=== PATIENT | female | born 1965 | race Caucasian/White ===

== ENCOUNTER 2023-04-29 11:13 | Emergency (ER) | payer BC, OTHER ==
[~2023-04-29] VITALS: Ht 160 cm; Wt 78.0 kg
[~2023-04-29 11:13] MED LIST: ALBU90OI INH; AZIT250 PO; DOXY100 PO; ESOM20 PO; ESTR2 PO; FEXPSEER PO; IBUP800 PO; L-METHYLFOLATE15 MG PO; METF500; METF500 PO; METO10 PO; METTREX2.5 PO; NEBI5 PO; OXYACE5T PO; PRED10 PO; PROM25 PO; Prednisone20 MG PO; RXCODGUASY PO; TRIHYD5075 PO; VIIBRYD10 MG PO; Zithromax250 MG PO
[2023-04-29 11:27] VITALS: BP 165/95
== END 2023-04-29 12:30 | disposition home or self-care (01) ==
LOC: ER 11:13
DX: S80.12XA Contusion of left lower leg, initial encounter (principal); X58.XXXA Exposure to other specified factors, initial encounter; I10 Essential (primary) hypertension; E11.9 Type 2 diabetes mellitus without complications; Z79.899 Other long term (current) drug therapy; Z79.84 Long term (current) use of oral hypoglycemic drugs
CPT/HCPCS: 93971; 99283-25